=== PATIENT | female | born 1975 | race African-American/Black ===

== ENCOUNTER 2019-09-03 01:26 | Emergency (ER) | payer OTHER ==
[~2019-09-03] VITALS: Ht 172.7 cm; Wt 86.2 kg
[~2019-09-03 01:26] MED LIST: ADVIL200 MG PO; ASPIR 8181 MG PO; BIRTH CONTROL; METHYLERGONOVI0.2 MG PO; NAPROSYN500 MG PO; NORCO 5-325 TA1 EACH PO; PREDNISONE 20 M20 MG PO; XANAX 0.5 MG0.5 MG PO; ZOFRAN ODT4 MG PO
[2019-09-03] MEDS ORDERED: MOBIC15 MG PO (04:24)
[2019-09-03 04:38] VITALS: BP 128/72
== END 2019-09-03 05:26 | disposition home or self-care (01) ==
LOC: ER 01:26
DX: K08.89 Other specified disorders of teeth and supporting structures (principal); J45.909 Unspecified asthma, uncomplicated; Z86.73 Personal history of transient ischemic attack (TIA), and cerebral infarction without residual deficits

== ENCOUNTER 2019-11-08 08:10 | Emergency (ER) | payer OTHER ==
[~2019-11-08] VITALS: Ht 172.7 cm; Wt 88.5 kg
[~2019-11-08 08:10] MED LIST changes: +MOBIC15 MG PO
[2019-11-08] MEDS ORDERED: PROAIR HFA8.5 GM INH (08:22)
[2019-11-08] MEDS ORDERED: ASA81BEC PO (08:26)
[2019-11-08] MEDS ORDERED: NORCO 5-325 TA1 EAC1 PO (09:21)
[2019-11-08] MEDS ORDERED: ZOFRAN ODT4 MG PO (09:21)
[2019-11-08] MEDS ORDERED: TAMIFLU75 MG PO (09:21)
[2019-11-08 09:35] VITALS: BP 116/71
== END 2019-11-08 09:35 | disposition home or self-care (01) ==
LOC: ER 08:10
DX: J10.1 Influenza due to other identified influenza virus with other respiratory manifestations (principal); J45.909 Unspecified asthma, uncomplicated; Z86.73 Personal history of transient ischemic attack (TIA), and cerebral infarction without residual deficits